=== PATIENT | male | born 1990 | race Caucasian/White ===

== ENCOUNTER 2024-10-30 01:05 | Emergency (ER) | payer OTHER, SELFPAY ==
--- NOTE | ~2024-10-30 | US_ITS ---
CLINICAL HISTORY: LUQ pain, worse after eating R O biliary disease gallstones US abdomen limited Comparison: CT/SR - CT ABDOMEN PELVIS W IV CON - 10/30/24 05:02 EDT Findings: There is no intrahepatic bile duct dilatation. The common duct is 2 mm in diameter. The gallbladder is normal. There is no sonographic Nix sign. IMPRESSION: 1. Unremarkable appearance of the gallbladder. No findings of acute cholecystitis or biliary obstruction This document has been electronically signed by: Melissa Carmichael MD on 10/30/2024 07:13:07
--- NOTE | ~2024-10-30 | CT_ITS ---
CLINICAL HISTORY: LUQ pain, worse after eating, R O biliary, diverti CT abdomen and pelvis with contrast Comparison: None Findings: The lung bases are clear. Unremarkable gallbladder and solid organs. No urolithiasis. No bowel obstruction, pneumoperitoneum, or pneumatosis. Pelvic contents unremarkable. Normal appendix. No fluid collections or adenopathy. Nonaneurysmal aorta. No acute fracture. IMPRESSION: No acute findings. This document has been electronically signed by: Melissa Carmichael MD on 10/30/2024 06:42:38
[2024-10-30 01:07] VITALS: BP 151/79; PULSE 72; RESP 20; TEMP 36.3; O2SAT 97; BMI 27.4
[2024-10-30 01:16] LABS: MANUAL DIFF FLAG NO
[2024-10-30 01:17] LABS: Basophils Percent Auto 0.5 % (0-2); Eosinophils Absolute Auto 0.4 X10*3/uL (0.0-0.4); Eosinophils Percent Auto 4.7 % (0-4); Hematocrit 46.6 % (42.0-52.0); Hemoglobin 16.1 g/dl (14.0-18.0); Imm Gran Abs Auto 0.03 X10*3/uL (0.00-0.03); Imm Gran Pct Auto 0.4 % (0.0-0.4); Lymphocytes Absolute Auto 2.8 X10*3/uL (1.2-4.9); Lymphocytes Percent Auto 33.2 % (20-40); Mean Corpuscular HGB Conc 34.5 g/dl (31.0-36.0); Mean Corpuscular Hemoglobin 30.1 pg (27.0-33.0); Mean Corpuscular Volume 87.1 fL (80.0-98.0); Mean Platelet Volume 9.5 fL (9.4-12.4); Monocytes Absolute Auto 0.8 X10*3/uL (0.1-1.2); Monocytes Percent Auto 9.9 % (2-11); Neutrophils Absolute Auto 4.3 x10*3/uL (2.0-8.3); Neutrophils Percent Auto 51.3 % (45-73); Platelet Count 246 X10*3/uL (160-400); Red Blood Count 5.35 X10*6/uL (4.60-5.80); Red Cell Distribution Width 12.8 % (11.0-16.0); White Blood Count 8.3 X10*3/uL (4.8-10.8)
[2024-10-30 01:39] LABS: Alanine Aminotransferase 32 U/L (0-40); Albumin Level 4.3 g/dL (3.5-5.0); Anion Gap 11 (12-20); Aspartate Amino Transferase 24 U/L (5-37); Bilirubin Total 0.7 mg/dL (0.0-1.0); Blood Urea Nitrogen 14 mg/dL (9-16); Calcium 10.1 mg/dL (8.4-10.2); Carbon Dioxide 28 mmol/L (22-29); Chloride 106 mmol/L (96-108); Creatinine Clr Calc Pharmacy 101.7; Estimated Glomerular Filt Rate > 60; Glucose Random 99 mg/dL (60-115); Lipase 36 U/L (8-78); Potassium 4.2 mmol/L (3.3-5.1); Sodium 141 mmol/L (135-145); Total Protein 6.9 g/dL (6.5-8.0)
--- OUTSIDE RECORDS SUMMARY | 2024-10-30 01:59 | XMS_ITS | Encounter Summary ---
Author Organization [facility] Address [address] [place] [id number] Phone Care Team Providers Care Tack Welder Name Role Phone Justin Lew MD Primary Care Provider [phone] Encounter Details Date Type Department Care Team (Late st Contact Info) Description 02/16/2017 Conversion Encounter [facility] [place] [address] [place] [address] Social History Tobacco Use Types Packs/Day Years Used Date Smoking Tobacco: Never Assessed Sex and Gender Information Value Date Recorded Sex Assigned at Not on file Legal Sex Male 4:29 PM EDT Gender Identity Not on file Sexual Orientation Not on file documented as of this encounter Plan of Treatment Not on file documented as of this encounter Visit Diagnoses Not on filedocumented in this encounter Care Teams Tack Welder Relationship Specialty Start Date End Date Justin Lew MD [address] [place] [address] PCP - General 02/10/17 12/26/22 documented as of this encounter
--- OUTSIDE RECORDS SUMMARY | 2024-10-30 01:59 | XMS_ITS | Clinical Summary ---
Author Organization [facility] Address [address] [place] [id number] Phone Care Team Providers Care It Network Engineer Name Role Phone Unavailable Primary Care Provider Unavailabl e Immunizations Immunization Administration Dates Next Due DTP 06/01/1999, 9,12/30/1993,1989,08/02/1989 Hep B, ped/adol 11/28/2000,07/28/2000,06/27/2000 Hib (PRP-T) 04/01/1990 IPV 06/01/1999, 9,12/30/1993,1989 MMR 06/27/2000,04/01/1990 Td (adult) (MBL), 2 Lf tetan us toxoid, PF, adsorbed 06/27/2000 Family History Relation Name Status Comments Father Alive Father: GERD Mother Mother: Allergi c rhinitis Sister Alive Sister: Alive a nd well Social History Tobacco Use Types Packs/Day Years Used Date Smoking Tobacco: Never Assessed Sex and Gender Information Value Date Recorded Sex Assigned at Not on file Legal Sex Male 4:29 PM EDT Gender Identity Not on file Sexual Orientation Not on file Plan of Treatment Health Maintenance Due Date Last Done Comments Varicella Vaccines (1 of 2 - 13+ 2-dose series) 2001 DTaP,Tdap,and Td Vaccines (7 - Tdap) 06/27/2010 06/27/2000, 06/01/1999, 04/01/1999, Additional history exists Influenza Vaccines (#1) 2024 COVID-19 Vaccine ( season) 2024 HIB Vaccines Completed 04/01/1990 IPV Vaccines Completed 06/01/1999, 03/05, 12/30/1993, Additional history exists MMR Vaccines Completed 06/27/2000, 04/01/1990 Hepatitis B Vaccines Completed 11/28/2000, 07/28/2000, 06/27/2000 HPV Vaccines Aged Out No longer eligi ble based on patient's age to complete this topic Hepatitis A Vaccines Aged Out No long er eligible based on patient's age to complete this topic Men B Vaccine Aged Out No longer elig ible based on patient's age to complete this topic Meningococcal Vaccine Aged Out No julianne austen eligible based on patient's age to complete this topic Pneumococcal Vaccine Aged Out No long er eligible based on patient's age to complete this topic
[2024-10-30 02:18] LABS: Alkaline Phosphatase 89 U/L (39-117)
--- NOTE | 2024-10-30 04:31 | ED_ITS ---
HPI - Abdominal Pain General Chief Complaint: Abdominal Pain Stated Complaint: abd pain Time Seen by Provider: 10/30/24 04:30 Source: patient Mode of arrival: ambulatory Limitations: no limitations History of Present Illness ED Provider: Dr. Mahad Cole HPI narrative: 33-year-old male with no significant past medical history who presents emergency department for evaluation abdominal pain , nausea, back pain x8 days. patient has been experiencing intermittent abdominal pain located in his left upper abdomen which she describes as a hunger pain which is 8/10 at its worst. Pain seems to come on 2-3 hours after eating and does radiate to his left lower back. He states that he also has a sensation like he has to move his bowels. He states that he has been having normal bowel movements. The pain is associated with nausea but he has had no vomiting. He has not taken any medications to relieve his pain. He denied fever, chills, chest pain, shortness of breath, frequency, urgency or dysuria. Related Data Previous Rx's ?Medication ?Instructions ?Recorded ondansetron 4 mg disintegrating 4 mg PO Q6-8H PRN nausea and 10/30/24 tablet vomiting #20 tabs Allergies Allergy/AdvReac Type Severity Reaction Status Date / Time No Known Allergies Allergy Verified 10/30/24 01:08 Review of Systems Review of Systems Yes all other systems are reviewed and are negative [facility] Past Medical History [facility] Narrative: Social history: He denies tobacco use. Occasionally drinks alcohol. He drinks year once or twice a month. Physical Exam ED Vital Signs: Vital Signs - 24 hr 10/30/24 01:07 10/30/24 07:39 Temperature 97.4 F 98.4 F Pulse Rate 72 60 Respiratory Rate 20 13 Blood Pressure 151/79 H 131/72 Pulse Oximetry 97 97 Oxygen Delivery Method Room Air Room Air BMI result Body Mass Index 27.4 Vital signs revealed an elevated blood pressure Exam: General: Awake, alert in no distress Head: Normocephalic, atraumatic EENT: PERRL, Lids normal, sclera normal, conjunctiva normal, nose normal , ears normal, throat without erythema or exudates Neck: Supple, no adenopathy Lung: breath sounds symmetric, no wheezing, rales or rhonchi Chest: symmetric movement, nontender Heart: regular rate and rhythm, normal S1, S2 no murmurs or rubs Abdomen: soft, mild epigastric tenderness, mild to moderate left upper quadrant tenderness, no right upper quadrant tenderness negative Nix sign, nondistended, normal bowel sounds Back: no vertebral tenderness, no CVAT Extremities: no deformities, moves all extremities symmetrically Neuro: Awake, alert, oriented, normal speech, cranial nerves intact, moves all extremities symmetrically Psych: Pleasant, cooperative Medical Decision Making Medical Decision Making [facility] Narrative: 33-year-old male with no significant past medical history who presents emergency department for evaluation abdominal pain , nausea, back pain x8 days. patient has been experiencing intermittent abdominal pain located in his left upper abdomen which she describes as a hunger pain which is 8/10 at its worst. Pain seems to come on 2-3 hours after eating and does radiate to his left lower back. He states that he also has a sensation like he has to move his bowels. He states that he has been having normal bowel movements. The pain is associated with nausea but he has had no vomiting. He has not taken any medications to relieve his pain. vital signs were normal. Physical examination revealed mild epigastric tenderness with mild to moderate left upper quadrant tenderness. Differential diagnosis: Includes but is not limited to gastritis, pancreatitis, diverticulitis, cholecystitis, ureteral stone, ureteral colic anemia, electrolyte abnormalities Course: My independent interpretation patient's laboratory evaluation is as follows: CBC was normal. CMP was normal. Lipase was normal. The patient's CT scan of the abdomen pelvis with IV contrast did not reveal any clear cause of the patient's pain. Right upper quadrant ultrasound revealed no gallstones. This time I do not have a clear etiology for the patient's pain was is that the patient has gastritis or duodenitis is the cause of his pain. patient was advised to take omeprazole OTC 20 mg once a day for 1 month . He was prescribed Zofran 4 mg ODT every 6-8 hours as needed for nausea or vomiting. He was given printed and verbal instructions discharged home. Admission/Observation Consideration of admission/observation: Escalation of care including admission/observation considered ( yes) Lab Data [facility] Lab Attestation statement: I reviewed the patient's lab results. 10/30/24 01:12 10/30/24 01:12 Labs: Lab Results 10/30/24 Range/Units 01:12 WBC 8.3 (4.8-10.8) X10*3/uL RBC 5.35 (4.60-5.80) X10*6/uL Hgb 16.1 (14.0-18.0) g/dl Hct 46.6 (42.0-52.0) % MCV 87.1 (80.0-98.0) fL MCH 30.1 (27.0-33.0) pg MCHC 34.5 (31.0-36.0) g/dl RDW 12.8 (11.0-16.0) % Plt Count 246 (160-400) X10*3/uL MPV 9.5 (9.4-12.4) fL Immature Gran % (Auto) 0.4 (0.0-0.4) % Neut % (Auto) 51.3 (45-73) % Lymph % (Auto) 33.2 (20-40) % [place] % (Auto) 9.9 (2-11) % Eos % (Auto) 4.7 H (0-4) % Baso % (Auto) 0.5 (0-2) % Lymph # (Auto) 2.8 (1.2-4.9) X10*3/uL [place] # (Auto) 0.8 (0.1-1.2) X10*3/uL Eos # (Auto) 0.4 (0.0-0.4) X10*3/uL Baso # (Auto) 0.0 (0.0-0.2) X10*3/uL Abs Immat Gran (auto) 0.03 (0.00-0.03) X10*3/uL Absolute Neuts (auto) 4.3 (2.0-8.3) x10*3/uL Absolute Nucleated RBC 0.000 (0.0-0.012) X10*3/uL Nucleated RBC % (auto) 0.0 (0.0-0.2) /100WBC Sodium 141 (135-145) mmol/L Potassium 4.2 (3.3-5.1) mmol/L Chloride 106 (96-108) mmol/L Carbon Dioxide 28 (22-29) mmol/L Anion Gap 11 L (12-20) BUN 14 (9-16) mg/dL Creatinine 0.98 (0.5-1.4) mg/dL Estim Creat Clear Calc 101.7 Estimated GFR > 60 Random Glucose 99 (60-115) mg/dL Calcium 10.1 (8.4-10.2) mg/dL Total Bilirubin 0.7 (0.0-1.0) mg/dL AST 24 (5-37) U/L ALT 32 (0-40) U/L Alkaline Phosphatase 89 (39-117) U/L Total Protein 6.9 (6.5-8.0) g/dL Albumin 4.3 (3.5-5.0) g/dL Lipase 36 (8-78) U/L Radiology Impression Discussion of test interpretation with radiology: I have reviewed the radiologist's reading. Radiologist Impression: US abdomen limited Comparison: CT/SR - CT ABDOMEN PELVIS W IV CON - 10/30/24 05:02 EDT Findings: There is no intrahepatic bile duct dilatation. The common duct is 2 mm in diameter. The gallbladder is normal. There is no sonographic Nix sign. IMPRESSION: 1. Unremarkable appearance of the gallbladder. No findings of acute cholecystitis or biliary obstruction This document has been electronically signed by: Melissa Carmichael MD on 10/30/2024 07:13:07 CT abdomen and pelvis with contrast Comparison: None Findings: The lung bases are clear. Unremarkable gallbladder and solid organs. No urolithiasis. No bowel obstruction, pneumoperitoneum, or pneumatosis. Pelvic contents unremarkable. Normal appendix. No fluid collections or adenopathy. Nonaneurysmal aorta. No acute fracture. IMPRESSION: No acute findings. This document has been electronically signed by: Melissa Carmichael MD on 10/30/2024 06:42:38 Independent Historian Clinical information obtained from an independent historian. History obtained from or confirmed by: Spouse Prescription Management I considered prescription management with: Other ( anti emetic:Zofran ODT) Medications Administered Discontinued Medications Generic Name Dose Route Start Last Admin Trade Name Freq PRN Reason Stop Dose Admin Iohexol 85 ml 10/30/24 05:07 10/30/24 05:07 Iohexol 350 Mg/Ml 100 Ml Infus..Btl IV 10/30/24 05:08 85 ml ONCE ONE Administration Discharge Plan Discharge Clinical Impression: Abdominal pain, Gastritis, Nausea Patient Disposition: Home, Self-Care Instructions: Gastritis (DC) Additional Instructions: Your blood work was unremarkable. The ultrasound of your right upper quadrant did not reveal any abnormalities, your gallbladder looked normal and you had no gallstones. The CT scan of your abdomen pelvis with IV contrast did not reveal a clear cause for your pain which is reassuring. At this time, I believe that your pain is caused by inflammation in your stomach (gastritis). Take Prilosec (omeprazole) 20 mg pills, 1 pill once a day for 1 month. ?This medication shuts off your acid production and lets the inflammation in your stomach and esophagus heal. Take Zofran ODT 4 mg pills, 1 pill dissolved in your mouth every 8 hours as needed for nausea and vomiting. Take Tylenol (acetaminophen) 500 mg pills, 2 pills every 6 hours as needed for pain or fever. Do not take any nonsteroidal anti-inflammatory medications (NSAIDs) such as ibuprofen, Motrin, Advil, Aleve, naproxen since he was medications can make gastritis worse. Follow-up with your doctor in 1-2 weeks. It may take a whole marked before your pain gets better however if your symptoms do not improve you may need to see a manager lan for further testing. Please return to the emergency department if your symptoms get worse or if you develop any symptoms that are concerning to you. Prescriptions: New ondansetron 4 mg tablet,disintegrating 4 mg PO Q6-8H PRN (Reason: nausea and vomiting) Qty: 20 0RF Interventions: ED Discharge Assessment Last Done: 10/30/24 08:21 Discharge Date/Time: 10/30/24 08:22 Print Language: Uzbek
[2024-10-30] MEDS: iohexoL 350 MG/ML 100 ML INFUS..BTL 85 ML IV (05:07)
[2024-10-30 07:39] VITALS: BP 131/72; PULSE 60; RESP 13; TEMP 36.9; O2SAT 97
[2024-10-30 08:21] VITALS: BP 130/81; PULSE 14; RESP 14; TEMP 36.2; O2SAT 99
== END 2024-10-30 08:22 | disposition home or self-care (01) ==
PROVIDERS: Emergency Provider Emergency Medicine Emergency Medical Services; PCP Family Medicine
DX: K29.70 Gastritis, unspecified, without bleeding (principal); R11.0 Nausea; R10.12 Left upper quadrant pain
CPT/HCPCS: 36415; 74177; 76705; 80053; 83690; 85025; 99284; Q9967

== ENCOUNTER → 2024-10-30 04:44 | Outpatient (BNV) | payer OTHER, SELFPAY | PROVIDERS: Emergency Provider Emergency Medicine Emergency Medical Services; PCP Family Medicine; Visit Provider Radiology Diagnostic Radiology | DX: R10.12 Left upper quadrant pain (principal) | CPT/HCPCS: 74177; 76705 ==